=== PATIENT | male | born 1995 | race Caucasian/White ===

== ENCOUNTER 2020-06-27 07:55 | Emergency (ER) | payer OTHER ==
[~2020-06-27] VITALS: Ht 172.7 cm; Wt 121.6 kg
[2020-06-27] MEDS ORDERED: DOLOGEN CAPLET1 EACH PO (15:02)
[2020-06-27] MEDS ORDERED: CIPRO500 MG PO (15:02)
== END 2020-06-27 15:39 | disposition home or self-care (01) ==
LOC: ER 07:55
DX: U07.1 COVID-19 (principal); N20.1 Calculus of ureter; B34.9 Viral infection, unspecified
CPT/HCPCS: 71260; 74177; Q9965